=== PATIENT | female | born 1940 | race Caucasian/White ===

== ENCOUNTER 2016-05-02 22:47 | Inpatient (IN) | payer OTHER ==
[2016-05-02 23:00] VITALS: BMI 28.3
--- NOTE | 2016-05-02 23:24 | PDOC ---
[id number] 4d Language Barrier - History of Present Illness Initial Comments: 05/02/16 23:34 The patient is a 76 year old female, with a significant past medical history of hypertension, seizure disorder, CVA (left side), mitral valve replacement(on coumadin), and septic endocarditis, who presents to the emergency department complaining of nausea and vomiting for 2 days. The patient reports 2 episodes of hemoptysis earlier today. She reports 2 episodes of emesis today and 2 yesterday. She reports constant nausea. As per son, the patient has been experiencing constant nausea since yesterday. The patient reports associated chills, but denies any fever, cough, headache, or dizziness. She reports generalized abdominal pain but denies diarrhea, constipation, or changes in urination patterns. The patient denies any recent travel or sick contacts. Allergies: None reported. Past Surgical History: Heart valve replacement (15 years ago) Social History: Non-smoker. Denies alcohol or drug use. PCP: Not on staff <Kimmie Lambert - Last Filed: 05/03/16 03:35> <Ruby Lim - Last Filed: 05/04/16 09:44> - General History Source: Patient <Ugo Sinhg - Last Filed: 05/07/16 19:38> - General Chief Complaint: Vomiting Blood Stated Complaint: VOMITTING BLOOD Time Seen by Provider: 05/02/16 23:24 Past History <Kimmie Lambert - Last Filed: 05/03/16 03:35> <Ruby Lim - Last Filed: 05/04/16 09:44> - Past Medical History Cardiac Disorders: Yes (Mechanical valve) CVA: Yes (no residual) Diabetes: Yes HTN: Yes Seizures: Yes - Surgical History Cardiac Surgery: Yes (Mechanical valve) - Psycho/Social/Smoking Cessation Hx Suicidal Ideation: No Smoking History: Never smoked Have you smoked in the past 12 months: No Hx Alcohol Use: No Drug/Substance Use Hx: No Substance Use Type: None Hx Substance Use Treatment: No <Ugo Singh - Last Filed: 05/07/16 19:38> - Past Medical History Allergies/Adverse Reactions: Allergies Allergy/AdvReac Type Severity Reaction Status Date / Time No Known Allergies Allergy Verified 05/02/16 22:53 Home Medications: Ambulatory Orders Aspirin [ASA -] 81 mg PO DAILY 11/26/15 Phenytoin Sodium Extended 100 mg PO TID 11/26/15 Warfarin Na [Coumadin -] 4 mg PO DAILY@1800 05/02/16 Warfarin Na [Coumadin] 6 mg PO ONCE 05/02/16 Carvedilol [Coreg -] 12.5 mg PO BID #120 tablet 05/06/16 Cefuroxime Axetil [Ceftin -] 500 mg PO BID #4 tablet 05/06/16 Docusate Sodium [Colace -] 100 mg PO TID capsule 05/06/16 Furosemide [Lasix -] 40 mg PO DAILY #30 tablet 05/06/16 Lisinopril [Prinivil] 5 mg PO DAILY #30 tablet 05/06/16 Polyethylene Glycol 3350 [Miralax 119 gm Btl -] 17 gm PO DAILY bottle 05/06/16 Sennosides [Senna -] 2 tab PO HS PRN #60 tablet 05/06/16 Review of Systems - Review of Systems Able to Perform ROS?: Yes Comments:: 05/02/16 23:34 CONSTITUTIONAL: Present: +chills Absent: fever, diaphoresis, generalized weakness, malaise, loss of appetite HEENT: Absent: rhinorrhea, nasal congestion, throat pain, throat swelling, difficulty swallowing, mouth swelling, ear pain, eye pain, visual Changes CARDIOVASCULAR: Absent: chest pain, syncope, palpitations, irregular heart rate, lightheadedness , peripheral edema RESPIRATORY: Absent: cough, shortness of breath, dyspnea with exertion, orthopnea, wheezing, stridor, hemoptysis GASTROINTESTINAL: Present: +Generalized abdominal pain, + nausea, +vomiting Absent: abdominal distension, diarrhea, constipation, melena, hematochezia GENITOURINARY: Absent: dysuria, frequency, urgency, hesitancy, hematuria, flank pain, genital pain MUSCULOSKELETAL: Absent: myalgia, arthralgia, joint swelling SKIN: Absent: rash, itching, pallor HEMATOLOGIC/IMMUNOLOGIC: Absent: easy bleeding, easy bruising, lymphadenopathy, frequent infections ENDOCRINE: Absent: unexplained weight gain, unexplained weight loss, heat intolerance, cold intolerance NEUROLOGIC: Absent: headache, focal weakness or paresthesias, dizziness, unsteady gait, seizure, mental status changes, bladder or bowel incontinence PSYCHIATRIC: Absent: anxiety, depression, suicidal or homicidal ideation, hallucinations. <Kimmie Lambert - Last Filed: 05/03/16 03:35> *Physical Exam - Vital Signs Last Vital Signs Temp Pulse Resp BP Pulse Ox 97.6 F 89 24 140/90 99 05/02/16 22:58 05/02/16 22:58 05/02/16 22:58 05/02/16 22:58 05/02/16 22:58 - Physical Exam Comments: 05/02/16 23:35 GENERAL: Well developed, well nourished. Awake and alert. No acute distress. HEENT: Normocephalic, atraumatic. PERRLA, EOMI. No conjunctival pallor. Sclera are non- icteric. Moist mucous membranes. Oropharynx is clear. NECK: Supple. Full ROM. No JVD. Carotid pulses 2+ and symmetric, without bruits. No thyromegaly. No lymphadenopathy. CARDIOVASCULAR: Regular rate and rhythm. No murmurs, rubs, or gallops. Distal pulses are 2+ and symmetric. PULMONARY: No evidence of respiratory distress. Lungs clear to auscultation bilaterally. No wheezing, rales or rhonchi. ABDOMINAL: +Mild tenderness to palpation in all 4 quadrants. Non-distended. No rebound or guarding. No organomegaly. Normoactive bowel sounds. MUSCULOSKELETAL Normal range of motion at all joints. No bony deformities or tenderness. No CVA tenderness. EXTREMITIES: No cyanosis. No clubbing. No edema. No calf tenderness. SKIN: Warm and dry. Normal capillary refill. No rashes. No jaundice. NEUROLOGICAL: Alert, awake, appropriate. Cranial nerves 2-12 intact. No deficits to light touch and temperature in face, upper extremities and lower extremities. No motor deficits in the in face, upper extremities and lower extremities. Normoreflexic in the upper and lower extremities. Normal speech. Toes are down- going bilaterally. Gait is normal without ataxia. PSYCHIATRIC: Cooperative. Good eye contact. Appropriate mood and affect. <Kimmie Lambert - Last Filed: 05/03/16 03:35> - Vital Signs Last Vital Signs Temp Pulse Resp BP Pulse Ox 98.5 F 95 H 16 154/93 97 05/03/16 06:44 05/03/16 06:44 05/03/16 06:44 05/03/16 06:44 05/03/16 06:44 <Ruby Lim - Last Filed: 05/04/16 09:44> - Vital Signs Last Vital Signs Temp Pulse Resp BP Pulse Ox 97.6 F 89 24 140/90 99 05/02/16 22:58 05/02/16 22:58 05/02/16 22:58 05/02/16 22:58 05/02/16 22:58 <Ugo Singh - Last Filed: 05/07/16 19:38> Heart Score/ECG Review - ECG Impressions Comment:: 05/03/16 02:59 Vent. Rate: 90 bpm IMPRESSION: Sinus rhythm with 1st degree AV block with premature atrial complexes. Incomplete left bundle branch block. Prolonged QT. <Kimmie Lambert - Last Filed: 05/03/16 03:35> - History History: Moderately suspicious - Electrocardiogram EKG: Normal - Age Age: >/= 65 - Risk Factors Risk Factors Heart Score: Yes Hx Hypertension, Yes Hx Obesity Based on the list above the patient has:: 1-2 risk factors - Troponin Troponin: </= normal limit - Score Heart Score - Total: 4 <Ruby Lim - Last Filed: 05/04/16 09:44> ED Treatment Course - LABORATORY CBC & Chemistry Diagram: 05/03/16 02:58 05/03/16 02:58 <Kimmie Lambert - Last Filed: 05/03/16 03:35> - LABORATORY CBC & Chemistry Diagram: 05/04/16 05:35 05/04/16 05:35 - ADDITIONAL ORDERS Additional order review: Laboratory Results 05/03/16 05/03/16 05/03/16 03:54 02:58 02:58 INR 2.22 H D Sodium 134 L Potassium 3.4 L Chloride 94 L Carbon Dioxide 26 Anion Gap 14 BUN 15 D Creatinine 0.8 D Creat Clearance w eGFR > 60 Random Glucose 131 H D Calcium 8.6 Magnesium 1.7 L Total Bilirubin 0.5 D AST 44 H ALT 25 D Alkaline Phosphatase 153 H D Creatine Kinase 259 H D CK-MB (CK-2) 6.915 H Troponin I 0.05 B-Natriuretic Peptide 458.43 H Total Protein 7.4 Albumin 3.9 D Lipase 151 Urine Color Ltyellow Urine Appearance Clear Urine pH 7.0 Ur Specific [place] 1.010 Urine Protein Negative Urine Glucose (UA) Negative Urine Ketones 1+ H Urine Blood 2+ H Urine Nitrite Positive Urine Bilirubin Negative Urine Urobilinogen Negative Ur Leukocyte Esterase Negative Urine RBC 19 Urine WBC 2 Ur Epithelial Cells Rare Urine Bacteria Moderate Urine Mucus Rare 05/03/16 02:58 RBC 4.41 MCV 90.8 MCHC 34.4 RDW 13.4 D MPV 9.0 Neutrophils % 81.8 D Lymphocytes % 12.4 D Monocytes % 4.1 Eosinophils % 1.3 Basophils % 0.4 - RADIOLOGY Radiology Studies Ordered: Category Date Time Status ABDOMEN & PELVIS CT WITH CONTR [CT] Stat CT Scan 05/03/16 09:[address] WITH CONTRAST [CT] Stat CT Scan 05/03/16 09:51 Completed - Medications Given in the ED: ED Medications Discontinued Medications Generic Name Dose Route Start Last Admin Trade Name Freq PRN Reason Stop Dose Admin Ceftriaxone Sodium 1,000 mg 05/03/16 07:06 05/03/16 10:50 Rocephin - IVPB 05/03/16 07:07 1,000 mg ONCE ONE Administration Sodium Chloride 1,000 mls @ 1,000 mls/hr 05/02/16 23:25 05/03/16 02:29 Normal Saline - IV 05/03/16 00:24 1,000 mls/hr ASDIR STA Administration Famotidine/Sodium Chloride 20 50 mls @ 100 mls/hr 05/02/16 23:25 05/03/16 02:29 mg/ Miscellaneous IVPB 05/02/16 23:54 100 mls/hr ONCE ONE Administration Ondansetron HCl 4 mg 05/02/16 23:25 05/03/16 02:29 Zofran Injection IVPUSH 05/02/16 23:26 4 mg ONCE STA Administration <Rbuy Lim - Last Filed: 05/04/16 09:44> - LABORATORY CBC & Chemistry Diagram: 05/06/16 05:35 05/06/16 05:35 <Ugo Singh - Last Filed: 05/07/16 19:38> Medical Decision Making - Medical Decision Making 05/07/16 19:38 Dr. Singh: The scribe's documentation has been prepared under my direction and personally reviewed by me in its entirery. I confirm that the note above accurately reflects all work, treatment, procedures, and medical decision making performed by me. <Ugo Singh - Last Filed: 05/07/16 19:38> *DC/Admit/Observation/Transfer - Attestations Scribe Attestion: 05/02/16 23:36 Documentation prepared by Kimmie Lambert, acting as biomedical electronics technician for Ugo Singh DO. <Kimmie Labmert - Last Filed: 05/03/16 03:35> <Ruby Lim - Last Filed: 05/04/16 09:44> <Ugo Singh - Last Filed: 05/07/16 19:38> Diagnosis at time of Disposition: Epigastric pain, Elevation of cardiac enzymes Vomiting Qualifiers: Vomiting type: unspecified Vomiting Intractability: non-intractable Nausea presence: with nausea Qualified Code(s): R11.2 - Nausea with vomiting, unspecified - Discharge Dispostion Disposition: HOME Condition at time of disposition: Improved - Prescriptions
[2016-05-02] MEDS ORDERED: SODIUM CHLORIDE 1,000 ML IV STA (23:25)
[2016-05-02] MEDS ORDERED: FAMOTIDINE 20 MG/50 ML IVPB 20 MG in PREMIX 50 IVPB ONE (23:25)
[2016-05-02] MEDS ORDERED: ONDANSETRON 4 MG/2 ML VIAL IVPUSH STA (23:25)
[2016-05-03] MEDS ORDERED: ONDANSETRON 4 MG/2 ML VIAL ONE (02:31)
[2016-05-03] MEDS ORDERED: FAMOTIDINE 20 MG/50 ML IVPB 50 ML IVPB ONE (02:31)
[2016-05-03 03:16] LABS: BASOPHIL 0.4 % (0-2.0); EOSINOPHIL 1.3 % (0-4.5); MCH 31.2 pg (25.7-33.7); MCHC 34.4 g/dl (32.0-36.0); MEAN CELL VOLUME 90.8 fl (80-96); NEUTROPHILS 81.8 % (42.8-82.8); PLATELET COUNT 120 K/MM3 (134-434); RDW 13.4 % (11.6-15.6); WHITE BLOOD COUNT 6.7 K/mm3 (4.0-10.0)
[2016-05-03 03:31] LABS: INR 2.22 (0.82-1.09); PROTHROMBIN TIME (PATIENT) 24.8 SEC (9.98-11.88)
[2016-05-03 03:39] LABS: ALBUMIN 3.9 g/dl (3.4-5.0); ANION GAP 14 (8-16); BILIRUBIN,TOTAL 0.5 mg/dL (0.2-1.0); CALCIUM 8.6 mg/dL (8.5-10.1); CO2 26 mmol/L (21-32); CREATININE 0.8 mg/dL (0.55-1.02); GLUCOSE,RANDOM 131 mg/dL (74-106); MAGNESIUM 1.7 mg/dL (1.8-2.4); SGPT/ALT 25 U/L (12-78); TOT PROT 7.4 g/dl (6.4-8.2)
[2016-05-03 03:43] LABS: ALK PHOS 153 U/L (45-117); TROPONIN I 0.05 ng/ml (0.00-0.05)
[2016-05-03 03:49] LABS: SGOT/AST 44 U/L (15-37)
[2016-05-03 04:55] LABS: URINE APPEARANCE CLEAR; URINE BILIRUBIN NEGATIVE (NEGATIVE); URINE COLOR LTYELLOW; URINE GLUCOSE (UA) NEGATIVE (NEGATIVE); URINE KETONE 1+ (NEGATIVE); URINE LEUK ESTERASE NEGATIVE (NEGATIVE); URINE NITRITE POSITIVE (NEGATIVE); URINE PROTEIN NEGATIVE (NEGATIVE); URINE UROBILINOGEN NEGATIVE E.U./dl (0.2-1.0)
[2016-05-03 05:00] LABS: URINE BLOOD 2+ (NEGATIVE)
[2016-05-03 05:02] LABS: URINE BACTERIA MODERATE /hpf (NONE SEEN); URINE MUCUS RARE; URINE RBC 19 /hpf (0-3); URINE WBC 2 /hpf (3-5)
--- NOTE | 2016-05-03 09:34 | PDOC ---
*Physical Exam - Vital Signs Last Vital Signs Temp Pulse Resp BP Pulse Ox 98.5 F 95 H 16 154/93 97 05/03/16 06:44 05/03/16 06:44 05/03/16 06:44 05/03/16 06:44 05/03/16 06:44 ED Treatment Course - LABORATORY CBC & Chemistry Diagram: 05/03/16 02:58 05/03/16 02:58 - ADDITIONAL ORDERS Additional order review: Laboratory Results 05/03/16 05/03/16 05/03/16 03:54 02:58 02:58 INR 2.22 H D Sodium 134 L Potassium 3.4 L Chloride 94 L Carbon Dioxide 26 Anion Gap 14 BUN 15 D Creatinine 0.8 D Creat Clearance w eGFR > 60 Random Glucose 131 H D Calcium 8.6 Magnesium 1.7 L Total Bilirubin 0.5 D AST 44 H ALT 25 D Alkaline Phosphatase 153 H D Creatine Kinase 259 H D CK-MB (CK-2) 6.915 H Troponin I 0.05 B-Natriuretic Peptide 458.43 H Total Protein 7.4 Albumin 3.9 D Lipase 151 Urine Color Ltyellow Urine Appearance Clear Urine pH 7.0 Ur Specific [place] 1.010 Urine Protein Negative Urine Glucose (UA) Negative Urine Ketones 1+ H Urine Blood 2+ H Urine Nitrite Positive Urine Bilirubin Negative Urine Urobilinogen Negative Ur Leukocyte Esterase Negative Urine RBC 19 Urine WBC 2 Ur Epithelial Cells Rare Urine Bacteria Moderate Urine Mucus Rare 05/03/16 02:58 RBC 4.41 MCV 90.8 MCHC 34.4 RDW 13.4 D MPV 9.0 Neutrophils % 81.8 D Lymphocytes % 12.4 D Monocytes % 4.1 Eosinophils % 1.3 Basophils % 0.4 - Medications Given in the ED: ED Medications Discontinued Medications Generic Name Dose Route Start Last Admin Trade Name Freq PRN Reason Stop Dose Admin Sodium Chloride 1,000 mls @ 1,000 mls/hr 05/02/16 23:25 05/03/16 02:29 Normal Saline - IV 05/03/16 00:24 1,000 mls/hr ASDIR STA Administration Famotidine/Sodium Chloride 20 50 mls @ 100 mls/hr 05/02/16 23:25 05/03/16 02:29 mg/ Miscellaneous IVPB 05/02/16 23:54 100 mls/hr ONCE ONE Administration Ondansetron HCl 4 mg 05/02/16 23:25 05/03/16 02:29 Zofran Injection IVPUSH 05/02/16 23:26 4 mg ONCE STA Administration Medical Decision Making - Medical Decision Making Patient endorsed to me by Dr. Singh at 7am shift change. Labs had resulted with elevated CK and CK-MB. Troponin was negative at 0.05. On reassessment there is additional history. Granddaughter is with her, stating she has had recent fall onto her back a few days ago, has bruising to the back (noted to have ecchymosis to the L flank). Now presents with epigastric pain, persistent vomiting, which developed into hematemesis. She has not had any vomiting episodes in the ED. She is on coumadin. She has history of mitral valve replacement, CVA, HTN. I have added CT scans of chest and abdomen/pelvis to r/o any injury due to fall. Sono from gallbladder earlier this morning negative. I will add second round of CE. *DC/Admit/Observation/Transfer Diagnosis at time of Disposition: Epigastric pain, Elevation of cardiac enzymes Vomiting Qualifiers: Vomiting type: unspecified Vomiting Intractability: non-intractable Nausea presence: with nausea Qualified Code(s): R11.2 - Nausea with vomiting, unspecified - Discharge Dispostion Condition at time of disposition: Stable Admit: Yes
--- NOTE | 2016-05-03 09:58 | EKG ---
Test Reason : Blood Pressure : / mmHG Vent. Rate : 090 BPM Atrial Rate : 090 BPM P-R Int : 228 ms QRS Dur : 116 ms QT Int : 414 ms P-R-T Axes : 049 057 075 degrees QTc Int : 506 ms SINUS RHYTHM WITH 1ST DEGREE A-V BLOCK WITH PREMATURE ATRIAL COMPLEXES INCOMPLETE LEFT BUNDLE BRANCH BLOCK PROLONGED QT ABNORMAL ECG WHEN COMPARED WITH ECG OF 05-JAN-2016 10:44, PREMATURE ATRIAL COMPLEXES ARE NOW PRESENT QRS DURATION HAS INCREASED T WAVE INVERSION NO LONGER EVIDENT IN INFERIOR LEADS Confirmed by YAHIR GARG MD ([id number]) on 05/03/2016 9:58:24 AM Referred By: Confirmed By:YAHIR GARG MD
[2016-05-03] MEDS ORDERED: PANTOPRAZOLE SODIUM 40 MG in SODIUM CHLORIDE 100 ML IVPB ONE (14:28)
[2016-05-03 15:28] LABS: TROPONIN I 0.12 ng/ml (0.00-0.05)
--- NOTE | 2016-05-03 15:38 | HP ---
CHIEF COMPLAINT: epigastric pain, nausea, vomiting Patient seen and examine at bedside. Chart, data, and imaging reviewed HISTORY OF PRESENT ILLNESS: 76yo female with Hx of seizures, MV replacement x2 on coumadin currently, HTN, reported fall down stairs this past wed. She denies an LOC or head trauma. The same day after the fall she developed non specified epigastric pain along with nausea 6 episodes of brownish vomitus. Denied vomiting tamie blood. Epigastric pain was mainly associated with vomiting and is not radiating to other parts of body. It is now resolved. Recent Travel: no recent travel PAST MEDICAL HISTORY: Seizure d/o, MV replacement x2, and HTN MV replacment PAST SURGICAL HISTORY: Social History: Smoking: no Alcohol:no Drugs: no Family History: none Allergies No Known Allergies Allergy (Verified 05/02/16 22:53) HOME MEDICATIONS: Medication Instructions Recorded Aspirin [ASA -] 81 mg PO DAILY 11/26/15 Phenytoin Sodium Extended 100 mg PO TID 11/26/15 Carvedilol [Coreg -] 6.25 mg PO BID tablet 01/10/16 Furosemide [Lasix -] 80 mg PO DAILY 05/02/16 Warfarin Na [Coumadin] 4 mg PO DAILY@1800 05/02/16 Warfarin Na [Coumadin] 6 mg PO ONCE 05/02/16 REVIEW OF SYSTEMS CONSTITUTIONAL: Absent: fever, chills, diaphoresis, generalized weakness, weight change HEENT: Absent: rhinorrhea, nasal congestion, throat pain, throat swelling, difficulty swallowing, mouth swelling, ear pain, eye pain, visual changes CARDIOVASCULAR: Absent: chest pain, syncope, palpitations, irregular heart rate, lightheadedness , peripheral edema RESPIRATORY: Absent: cough, shortness of breath, dyspnea with exertion, orthopnea, wheezing, stridor, hemoptysis GASTROINTESTINAL: Absent: abdominal distension, diarrhea, melena, hematochezia GENITOURINARY: Absent: dysuria, frequency, urgency, hesitancy, hematuria, flank pain, genital pain MUSCULOSKELETAL: Absent: arthralgia, joint swelling, back pain, neck pain SKIN: Absent: rash, itching, pallor HEMATOLOGIC/IMMUNOLOGIC: Absent: , lymphadenopathy, frequent infections ENDOCRINE: Absent: unexplained weight gain, unexplained weight loss, heat intolerance, cold intolerance NEUROLOGIC: Absent: headache, focal weakness or paresthesias, dizziness, unsteady gait, seizure, mental status changes, bladder or bowel incontinence PSYCHIATRIC: Absent: anxiety, depression, suicidal or homicidal ideation, hallucinations. +consitpation, + myalgia on back, + bruising on back PHYSICAL EXAMINATION GENERAL: Awake, alert, drowsy HEAD: Normal with no signs of trauma, moist mucous membranes EYES: Pupils equal, round and reactive to light, sclera anicteric, conjunctiva clear EARS, NOSE, THROAT: Ears normal, nares patent, oropharynx clear without exudates. Moist mucous membranes. NECK: Normal range of motion, supple without lymphadenopathy, JVD, or masses. LUNGS: Breath sounds equal, clear to auscultation bilaterally. No wheezes, and no crackles. No accessory muscle use. HEART: Regular rate and rhythm, normal S1 and S2 + systolic mumur ABDOMEN: Soft, nontender, not distended, normoactive bowel sounds, no guarding, no rebound, no masses MUSCULOSKELETAL: Normal range of motion at all joints. left lumbar region bruising UPPER EXTREMITIES: 2+ pulses, warm, well-perfused. No cyanosis. No clubbing. No peripheral edema. LOWER EXTREMITIES: 2+ pulses, warm, well-perfused. No calf tenderness. No peripheral edema. NEUROLOGICAL: Normal speech. PSYCHIATRIC: Cooperative. Good eye contact. Appropriate mood and affect. SKIN: Warm, dry, normal turgor Laboratory Results - last 24 hr 05/03/16 15:00 Creatine Kinase 276 H Troponin I 0.12 H Abnormal Lab Results 05/03/16 05/03/16 05/03/16 02:58 02:58 02:58 Plt Count 120 L INR 2.22 H D Sodium 134 L Potassium 3.4 L Chloride 94 L Random Glucose 131 H D Magnesium 1.7 L AST 44 H Alkaline Phosphatase 153 H D Creatine Kinase 259 H D CK-MB (CK-2) 6.915 H Troponin I B-Natriuretic Peptide 458.43 H Urine Ketones Urine Blood 05/03/16 05/03/16 03:54 15:00 Plt Count INR Sodium Potassium Chloride Random Glucose Magnesium AST Alkaline Phosphatase Creatine Kinase 276 H CK-MB (CK-2) Troponin I 0.12 H B-Natriuretic Peptide Urine Ketones 1+ H Urine Blood 2+ H ASSESSMENT/PLAN: #Epigastric pain - r/o TN - EKG wnl, no ST, T changes noted, first troponin was negative, -admit to observation -serial troponins -repeat EKG -monitor H,H for possible drop- would suspect hematemesis #Nausea and vomiting -keep NPO fo now -IV fluid hydration -zofran 4mg IVPB PRN if nausea or vomiting #bioprosthetic mitral valve -continue ASA 81mg daily -continue coumadin 4mg daily -check INR at daily -consider to hold warfarin in future given history of fall #HTN -resume coreg 6.25mg bid -2g sodium diet once nausea, vomiting resolves #seizure dz - controlled -continue dilantin 100mg tid #DVT ppx -low risk -intermittent compression stocking -on coumadin Visit type - Emergency Visit Emergency Visit: Yes ED Registration Date: 05/03/16 Care time: The patient presented to the Emergency Department on the above date and was hospitalized for further evaluation of their emergent condition. - New Patient This patient is new to me today: Yes Date on this admission: 05/03/16 - Critical Care Critical Care patient: No
[2016-05-03] MEDS ORDERED: SODIUM CHLORIDE 1,000 ML IV SCH (16:45)
[2016-05-03] MEDS: WARFARIN NA 2 MG TABLET (UD) PO SCH (17:57)
[2016-05-03] MEDS: ONDANSETRON 4 MG/2 ML VIAL IVPB PRN (21:40)
[2016-05-03] MEDS: PHENYTOIN 50 MG TAB.CHEW PO SCH (22:50)
[2016-05-03] MEDS: CARVEDILOL 6.25 MG TABLET (FP) PO SCH (22:50)
[2016-05-04] MEDS: PHENYTOIN 50 MG TAB.CHEW PO SCH ×3 (06:12→22:27)
[2016-05-04] MEDS: ONDANSETRON 4 MG/2 ML VIAL IVPB PRN (06:45)
[2016-05-04 07:02] LABS: BASOPHIL 0.7 % (0-2.0); EOSINOPHIL 0.3 % (0-4.5); MCH 31.1 pg (25.7-33.7); MCHC 34.7 g/dl (32.0-36.0); MEAN CELL VOLUME 89.5 fl (80-96); MEAN PLT VOLUME 8.6 fl (7.5-11.1); NEUTROPHILS 79.1 % (42.8-82.8); PLATELET COUNT 132 K/MM3 (134-434); RDW 13.3 % (11.6-15.6); WHITE BLOOD COUNT 8.8 K/mm3 (4.0-10.0)
[2016-05-04 07:35] LABS: INR 3.39 (0.82-1.09); PROTHROMBIN TIME (PATIENT) 38.2 SEC (9.98-11.88)
[2016-05-04 07:58] LABS: CREATININE 0.9 mg/dL (0.55-1.02); TROPONIN I 0.13 ng/ml (0.00-0.05)
[2016-05-04] MEDS: CARVEDILOL 6.25 MG TABLET (FP) PO SCH ×2 (09:21→22:27)
[2016-05-04] MEDS: ASPIRIN COATED 81 MG TABLET.EC PO SCH (09:21)
[2016-05-04] MEDS: FUROSEMIDE 40 MG TABLET (FP) PO SCH (09:21)
[2016-05-04] MEDS ORDERED: CEFTRIAXONE 1 GM in DEXTROSE 5%-WATER - 50 ML IVPB SCH (10:45)
[2016-05-04] MEDS: cefTRIAXone 1 GM/50 ML BAG (PRE-DOCKED) IVPB SCH (12:46)
[2016-05-04] MEDS ORDERED: POTASSIUM CHLORIDE 40 MEQ/30 ML UNIT DOSE CUP PO ONE (14:21)
--- NOTE | 2016-05-04 15:05 | PN ---
Progress Note (short form) - Note Progress Note: Subjective: The patient was seen and examined at the bedside with her son present. She reports having vomiting since Friday, non-bilious, non-bloody. She denies any nausea or vomiting now. Denies diarrhea Current Medications Generic Name Dose Route Start Last Admin Trade Name Freq PRN Reason Stop Dose Admin Aspirin 81 mg 05/04/16 10:00 05/04/16 09:21 Ecotrin - PO 81 mg DAILY LIAM Administration Carvedilol 6.25 mg 05/03/16 22:00 05/04/16 09:21 Coreg - PO 6.25 mg BID LIAM Administration Ceftriaxone Sodium 1 gm 05/04/16 10:45 05/04/16 12:46 Rocephin 1gm Ivpb (Pre-Docked) IVPB 1 gm DAILY LIAM Administration Furosemide 40 mg 05/04/16 10:00 05/04/16 09:21 Lasix - PO 40 mg DAILY LIAM Administration Ondansetron HCl 4 mg 05/03/16 16:15 05/04/16 06:45 Zofran Injection IVPB 4 mg Q4H PRN Administration NAUSEA AND/OR VOMITING Phenytoin Sodium 100 mg 05/03/16 22:00 05/04/16 14:22 Dilantin Chewable Tablet - PO 100 mg TID LIAM Administration Potassium Chloride 20 meq 05/04/16 14:21 Kcl Oral Solution - PO 05/04/16 14:22 ONCE ONE Warfarin Sodium 4 mg 05/03/16 18:00 05/03/16 17:57 Coumadin - PO Not Given DAILY@1800 LIAM Objective: Vital Signs Period Temp Pulse Resp BP Sys/Gale Pulse Ox Last 24 Hr 98.2 F-98.6 F 87-101 16-20 131-164/79-91 96-98 Physical Exam: General: NAD, A&Ox3 Lungs: CTA bilaterally Heart: RRR, S1S2 Abd: Soft, non-tender, non-distended. Normoactive bowel sounds Ext: Warm, well-perfused. 2+ DP/PT bilaterally Neuro: CN 2-12 intact CBCD WBC 8.8 K/mm3 (4.0-10.0) D 05/04/16 05:35 RBC 4.32 M/mm3 (3.60-5.2) 05/04/16 05:35 Hgb 13.4 GM/dL (10.7-15.3) 05/04/16 05:35 Hct 38.7 % (32.4-45.2) 05/04/16 05:35 MCV 89.5 fl (80-96) 05/04/16 05:35 MCHC 34.7 g/dl (32.0-36.0) 05/04/16 05:35 RDW 13.3 % (11.6-15.6) 05/04/16 05:35 Plt Count 132 K/MM3 (134-434) L 05/04/16 05:35 MPV 8.6 fl (7.5-11.1) 05/04/16 05:35 CMP Sodium 137 mmol/L (136-145) 05/04/16 05:35 Potassium 3.3 mmol/L (3.5-5.1) L 05/04/16 05:35 Chloride 99 mmol/L (98-107) 05/04/16 05:35 Carbon Dioxide 26 mmol/L (21-32) 05/04/16 05:35 Anion Gap 12 (8-16) 05/04/16 05:35 BUN 15 mg/dL (7-18) 05/04/16 05:35 Creatinine 0.9 mg/dL (0.55-1.02) 05/04/16 05:35 Creat Clearance w eGFR > 60 (>60) 05/03/16 02:58 Random Glucose 116 mg/dL (74-106) H 05/04/16 05:35 Calcium 9.0 mg/dL (8.5-10.1) 05/04/16 05:35 Total Bilirubin 0.5 mg/dL (0.2-1.0) D 05/03/16 02:58 AST 44 U/L (15-37) H 05/03/16 02:58 ALT 25 U/L (12-78) D 05/03/16 02:58 Alkaline Phosphatase 153 U/L (45-117) H D 05/03/16 02:58 Total Protein 7.4 g/dl (6.4-8.2) 05/03/16 02:58 Albumin 3.9 g/dl (3.4-5.0) D 05/03/16 02:58 CARDIAC ENZYMES Creatine Kinase 276 IU/L (26-192) H 05/03/16 15:00 Troponin I 0.13 ng/ml (0.00-0.05) H 05/04/16 05:35 Microbiology 05/03/16 03:54 Urine - Urine Clean Catch Urine Culture - Preliminary Non Lactose Fermenting Gnb Assessment: This is a 76 year old with PMHx of seizure disorder, mitral valve replacement x2, HTN, who presented to the ED with a reported fall on 05/01, nausea, vomiting and was found to have a urinary tract infection. Plan: 1) ID: UTI - Urine culture with preliminary non-lactose fermenting gnb - Continue Ceftriaxone 1g IVPB daily - F/u final c/s - Remains afebile - WBC wnl 2) Cardiology: Elevated troponins - Per cardiology no clinical evidence of demand ischemia injury - Continue Coreg - Will add lisinopril 2.5mg po daily MVR mechanical prothesis - Continue ASA - Continue Coumadin (goal INR 2.5-3.5) - F/u ECHO to evaluate MV prosthesis and LV function HTN - As above 3) GI: N/V - Per patient, no blood in vomitus - Per RN, no blood noted in vomitus - H/H stable - Vomiting resolved - Continue to monitor 4) Neuro: Seizure disorder - Continue Dilantin 5) F/E/N: - Clear liquid diet - Monitor electrolytes 6) Prophylaxis: - Therapeutic on Coumadin 7) Dispo: - Requires continued inpatient care CODE STATUS: FULL CODE Visit type - Emergency Visit Emergency Visit: Yes ED Registration Date: 05/04/16 Care time: The patient presented to the Emergency Department on the above date and was hospitalized for further evaluation of their emergent condition. - New Patient This patient is new to me today: Yes Date on this admission: 05/04/16 - Critical Care Critical Care patient: No - Discharge Referral Referred to [facility] No
[2016-05-04 15:22] LABS: MAGNESIUM 1.8 mg/dL (1.8-2.4)
--- NOTE | 2016-05-04 17:17 | PN ---
Progress Note (short form) - Note Progress Note: Chief Complaint: Events noted, notes reviewed, epigastric discomfort, nausea, vomiting and possible hematemesis History of Present Illness: Seen and examined on telemetry. Full consult dictated Medications: Current Medications Aspirin (Ecotrin -) 81 mg PO DAILY [facility] Last Admin: 05/04/16 09:21 Dose: 81 mg Carvedilol (Coreg -) 6.25 mg PO BID [facility] Last Admin: 05/04/16 09:21 Dose: 6.25 mg Ceftriaxone Sodium (Rocephin 1gm Ivpb (Pre-Docked)) 1 gm IVPB DAILY [facility] Last Admin: 05/04/16 12:46 Dose: 1 gm Furosemide (Lasix -) 40 mg PO DAILY [facility] Last Admin: 05/04/16 09:21 Dose: 40 mg Ondansetron HCl (Zofran Injection) 4 mg IVPB Q4H PRN PRN Reason: NAUSEA AND/OR VOMITING Last Admin: 05/04/16 06:45 Dose: 4 mg Phenytoin Sodium (Dilantin Chewable Tablet -) 100 mg PO TID [facility] Last Admin: 05/04/16 14:22 Dose: 100 mg Warfarin Sodium (Coumadin -) 4 mg PO DAILY@1800 [facility] Last Admin: 05/03/16 17:57 Dose: Not Given Review of Systems - Review of Systems Constitutional: denies: Chills, Fever Cardiovascular: As noted above Respiratory: denies: Cough or Sputum Production Gastrointestinal: reports: Nausea, Vomiting, Diarrhea and Abdominal Pain denies : Constipation Neurological: No Symptoms Reported Vital Signs: Last Vital Signs Temp Pulse Resp BP Pulse Ox 98.2 F 80 20 145/80 98 05/04/16 14:00 05/04/16 14:00 05/04/16 14:00 05/04/16 14:00 05/04/16 10:00 Neck: Supple Negative JVD No Bruit Respiratory: Diminished Breath Sounds at the Bases Cardiovascular: Mechanical Click S2 Regular Rate and rhythm Grade 1-2/6 SM Gastrointestinal: Soft Benign Normal Bowel Sounds Ext: Negative Edema Labs: Troponin, BNP 05/03/16 05/04/16 21:00 05:35 Troponin I 0.16 H 0.13 H CBC, BMP 05/04/16 05:35 05/04/16 05:35 INR, PTT INR 3.39 (0.82-1.09) H D 05/04/16 05:35 Assessment/Plan ASSESSMENT: 1. Underlying CAD angina pectoris with elevated Troponin I (of no clinical significance) no clinical evidence of demand ischemic injury 2. Nausea, vomiting, epigastric discomfort and possible hematemesis 3. Post re-op MVR mechanical prosthesis (initial MVR Bio-prosthesis complicated by endocarditis) 4. LV diastolic dysfunction with chronic class I-II NYHA classification LV failure, compensated 5. 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 HTN 7. History of seizure disorder 8. history of a recent fall PLAN: 1. Continue Coreg 2. Add ARBS unless it is absolutely contraindicated 3. Continue ASA and Coumadin (maintaining INR between 2.5-3.5) with caution and close monitoring of CBC 4. Continue diuretics 5. Echocardiography to evaluate LV function and MV prosthesis Yunior Lincoln M.D.
[2016-05-04] MEDS: WARFARIN NA 2 MG TABLET (UD) PO SCH ×2 (18:09→19:56)
--- NOTE | 2016-05-04 20:33 | CONS ---
DATE OF CONSULTATION: 05/04/2016 REQUESTED BY: HOSPITALIST CHIEF COMPLAINT: Nausea, vomiting, epigastric discomfort, elevated troponin I, cardiovascular evaluation. HISTORY OF PRESENT ILLNESS: A 76-year-old female of descent with known history of coronary artery disease, angina pectoris, diastolic left ventricular dysfunction with class I-II [place] Heart [employer] classification left ventricular failure. 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 The patient was noted upon evaluation in the emergency room to have elevated troponin I level. The patient currently reports vague epigastric discomfort but she denies any nausea or vomiting. The patient denies any chest discomfort. The patient denies any dyspnea, orthopnea, paroxysmal nocturnal dyspnea, or peripheral edema. The patient denies any palpitations, dizziness, lightheaded, or syncope. According to the family, the patient recently sustained a fall at home. 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 SOCIAL HISTORY: Denies smoking or alcohol intake. FAMILY HISTORY: No family history of coronary artery disease. ALLERGIES: None reported. MEDICAL THERAPY AT HOME: Included Ecotrin 81 mg once a day, Coumadin 4 mg once a day, Lasix 80 mg once a day, carvedilol 6.25 mg twice a day, phenytoin 100 mg three times a day. REVIEW OF SYSTEMS: Head and Neck: Denies headache, photophobia, blurring of vision. Respiratory: Denies cough or sputum production. Cardiovascular: As noted above. Gastrointestinal: As noted above. Genitourinary: No symptoms reported. Musculoskeletal: History of degenerative joint disease. PHYSICAL EXAMINATION: Vital Signs: Blood pressure is 145/80 mmHg, pulse rate 80 beats per minute. Head and Neck: Pupils equal reactive to light and accommodation. Extraocular muscles intact. Nonicteric sclerae. Negative JVD. No bruit appreciated. Chest: Diminished breath sounds at the bases. Cardiovascular: Mechanical click, S2. Grade 1 to 2/6 systolic ejection murmur. No gallops Abdomen: Soft, benign, normoactive bowel sounds. Extremities: Negative edema. Intact distal pulses. No calf tenderness. LABORATORY DATA: Electrocardiogram revealed sinus rhythm with poor R-wave progression and a prolonged QTC interval. CT scan of the chest was noted. Troponin I 0.16. Repeat 0.13. CBC revealed white cell count 8.8, hemoglobin 13.4, platelets 132. Basic metabolic profile reveals sodium 137, potassium 3.3, BUN 15, creatinine 0.9, glucose 116, INR 3.39. ASSESSMENT: 1. Underlying cleaned and dressed, angina pectoris with elevated troponin I of no clinical significance. No clinical evidence of demand ischemic injury. 2. Nausea, vomiting, epigastric discomfort, and possible hematemesis. 3. Post reoperation mitral valve replacement, mechanical prosthesis, initial mitral valve replacement bioprosthesis complicated by endocarditis. 4. Left ventricular diastolic dysfunction with chronic class I-II [place] Heart [employer] classification of left ventricular failure, compensated. 5. 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 6. Hypertensive cardiovascular disease. 7. History of seizure disorder. 8. History of a recent fall. PLAN: 1. Continuation of Coreg 2 Addition of angiotensin receptor blockers unless it is absolutely contraindicated. 3. Continuation of aspirin and Coumadin, maintaining INR between 2.5-3.5 with caution and close monitoring of CBC, considering the above noted clinical presentation. 4. Continuation of diuretic therapy with Lasix. 5. Echocardiography for evaluation of left ventricular size and function and the above-noted mitral valve prosthesis. Thank you for your kind referral. SHAHAB MCCORMACK M.D. [id number]
[2016-05-04] MEDS ORDERED: PT OWN MED DRAWER 7, Y5N ONE (22:26)
[2016-05-05] MEDS ORDERED: PT OWN MED DRAWER 7, Y5N ONE ×2 (05:53→16:07)
[2016-05-05] MEDS: PHENYTOIN 50 MG TAB.CHEW PO SCH ×3 (05:55→21:28)
[2016-05-05 07:26] LABS: BASOPHIL 0.8 % (0-2.0); MCH 31.2 pg (25.7-33.7); MCHC 35.6 g/dl (32.0-36.0); MEAN CELL VOLUME 87.8 fl (80-96); MEAN PLT VOLUME 8.2 fl (7.5-11.1); NEUTROPHILS 66.2 % (42.8-82.8); PLATELET COUNT 118 K/MM3 (134-434); WHITE BLOOD COUNT 6.6 K/mm3 (4.0-10.0)
[2016-05-05 07:33] LABS: PROTHROMBIN TIME (PATIENT) 48.7 SEC (9.98-11.88)
[2016-05-05 07:38] LABS: INR 4.3 (0.82-1.09)
--- NOTE | 2016-05-05 09:18 | PN ---
Progress Note (short form) - Note Progress Note: Chief Complaint: Events noted, notes reviewed, denies any further epigastric discomfort, nausea, vomiting, denies any chest pain or dyspnea History of Present Illness: Seen and examined on telemetry. Events noted, notes reviewed, denies any further epigastric discomfort, nausea, vomiting, denies any chest pain or dyspnea INR from this AM noted, supra-therapeutic Medications: Current Medications Aspirin (Ecotrin -) 81 mg PO DAILY [facility] Last Admin: 05/04/16 09:21 Dose: 81 mg Carvedilol (Coreg -) 6.25 mg PO BID [facility] Last Admin: 05/04/16 22:27 Dose: 6.25 mg Ceftriaxone Sodium (Rocephin 1gm Ivpb (Pre-Docked)) 1 gm IVPB DAILY [facility] Last Admin: 05/04/16 12:46 Dose: 1 gm Furosemide (Lasix -) 40 mg PO DAILY [facility] Last Admin: 05/04/16 09:21 Dose: 40 mg Lisinopril (Prinivil) 2.5 mg PO DAILY [facility] Ondansetron HCl (Zofran Injection) 4 mg IVPB Q4H PRN PRN Reason: NAUSEA AND/OR VOMITING Last Admin: 05/04/16 06:45 Dose: 4 mg Phenytoin Sodium (Dilantin Chewable Tablet -) 100 mg PO TID [facility] Last Admin: 05/05/16 05:55 Dose: 100 mg Warfarin Sodium (Coumadin -) 4 mg PO DAILY@1800 [facility] Last Admin: 05/04/16 19:56 Dose: 4 mg Review of Systems - Review of Systems Constitutional: denies: Chills, Fever Cardiovascular: As noted above Respiratory: denies: Cough or Sputum Production Gastrointestinal: denies: Nausea, Vomiting, Diarrhea, Constipation or Abdominal Pain Neurological: No Symptoms Reported Vital Signs: Last Vital Signs Temp Pulse Resp BP Pulse Ox 98.1 F 78 20 154/90 98 05/05/16 06:00 05/05/16 06:00 05/05/16 06:00 05/05/16 06:00 05/05/16 06:00 Neck: Supple Negative JVD No Bruit Respiratory: Diminished Breath Sounds at the Bases Cardiovascular: Mechanical Click S2 Regular Rate and rhythm Grade 1-2/6 SM Gastrointestinal: Soft Benign Normal Bowel Sounds Ext: Negative Edema Labs: CBC, BMP 05/05/16 05:35 05/04/16 05:35 INR, PTT INR 4.30 (0.82-1.09) H* 05/05/16 05:35 Assessment/Plan ASSESSMENT: 1. CAD angina pectoris with elevated Troponin I (of no clinical significance) no clinical evidence of demand ischemic injury 2. Nausea, vomiting, epigastric discomfort and possible hematemesis, resolved 3. Post re-op MVR mechanical prosthesis (initial MVR Bio-prosthesis complicated by endocarditis) 4. LV diastolic dysfunction with chronic class I-II NYHA classification LV failure, compensated 5. 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 HTN 7. History of seizure disorder 8. UTI 9. history of a recent fall PLAN: 1. Continue Coreg and titrate dosage 2. Continue Lisinopril and titrate dosage 3. Continue ASA and Coumadin (maintaining INR between 2.5-3.5) with caution and close monitoring of CBC, hold todays Coumadin dose 4. Continue diuretics 5. Antibiotics as per primary team 6. Echocardiography to evaluate LV function and MV prosthesis Yunior Lincoln M.D.
[2016-05-05] MEDS ORDERED: WARFARIN NA 2 MG TABLET (UD) PO SCH (09:21)
--- NOTE | 2016-05-05 09:39 | EKG ---
Test Reason : Blood Pressure : / mmHG Vent. Rate : 085 BPM Atrial Rate : 085 BPM P-R Int : 222 ms QRS Dur : 112 ms QT Int : 412 ms P-R-T Axes : 045 033 056 degrees QTc Int : 490 ms SINUS RHYTHM WITH 1ST DEGREE A-V BLOCK PROLONGED QT ABNORMAL ECG WHEN COMPARED WITH ECG OF 03-MAY-2016 02:55, PREMATURE ATRIAL COMPLEXES ARE NO LONGER PRESENT Confirmed by FOREST CASEY, YAHIR ([id number]) on 05/05/2016 9:39:06 AM Referred By: Jose Elias CAMERON Confirmed By:YAHIR GARG MD
[2016-05-05 09:47] LABS: CALCIUM 8.6 mg/dL (8.5-10.1); CREATININE 0.8 mg/dL (0.55-1.02)
[2016-05-05] MEDS ORDERED: LISINOPRIL 5 MG TABLET (FP) PO SCH (10:00)
[2016-05-05] MEDS: ASPIRIN COATED 81 MG TABLET.EC PO SCH (10:43)
[2016-05-05] MEDS: LISINOPRIL 5 MG TABLET (FP) PO SCH (10:43)
[2016-05-05] MEDS: CARVEDILOL 6.25 MG TABLET (FP) PO SCH ×2 (10:44→21:27)
[2016-05-05] MEDS: FUROSEMIDE 40 MG TABLET (FP) PO SCH (10:44)
[2016-05-05] MEDS: cefTRIAXone 1 GM/50 ML BAG (PRE-DOCKED) IVPB SCH (10:45)
--- NOTE | 2016-05-05 11:59 | PN ---
Progress Note (short form) - Note Progress Note: Subjective: The patient was seen and examined at the bedside she denies any nausea or vomiting. Diet advanced F/u ECHO tomorrow Mechanical mitral valve: INR supratherapeutic today, will hold Coumadin Current Medications Generic Name Dose Route Start Last Admin Trade Name Freq PRN Reason Stop Dose Admin Aspirin 81 mg 05/04/16 10:00 05/05/16 10:43 Ecotrin - PO 81 mg DAILY [facility] Administration Carvedilol 12.5 mg 05/05/16 09:21 05/05/16 10:44 Coreg - PO 12.5 mg BID [facility] Administration Ceftriaxone Sodium 1 gm 05/04/16 10:45 05/05/16 10:45 Rocephin 1gm Ivpb (Pre-Docked) IVPB 1 gm DAILY [facility] Administration Furosemide 40 mg 05/04/16 10:00 05/05/16 10:44 Lasix - PO 40 mg DAILY [facility] Administration Lisinopril 5 mg 05/05/16 10:00 05/05/16 10:43 Prinivil PO 5 mg DAILY [facility] Administration Ondansetron HCl 4 mg 05/03/16 16:15 05/04/16 06:45 Zofran Injection IVPB 4 mg Q4H PRN Administration NAUSEA AND/OR VOMITING Phenytoin Sodium 100 mg 05/03/16 22:00 05/05/16 05:55 Dilantin Chewable Tablet - PO 100 mg TID [facility] Administration Warfarin Sodium 4 mg 05/05/16 09:21 Coumadin - PO DAILY@1800 [facility] Objective: Vital Signs Period Temp Pulse Resp BP Sys/Gale Pulse Ox Last 24 Hr 98.1 F-99 F 78-86 20-20 131-154/80-93 98-98 Physical Exam: General: NAD, A&Ox3 Lungs: CTA bilaterally Heart: RRR, S1S2 Abd: Soft, non-tender, non-distended. Normoactive bowel sounds Ext: Warm, well-perfused. 2+ DP/PT bilaterally Neuro: CN 2-12 intact CBCD WBC 6.6 K/mm3 (4.0-10.0) 05/05/16 05:35 RBC 4.35 M/mm3 (3.60-5.2) 05/05/16 05:35 Hgb 13.6 GM/dL (10.7-15.3) 05/05/16 05:35 Hct 38.2 % (32.4-45.2) 05/05/16 05:35 MCV 87.8 fl (80-96) 05/05/16 05:35 MCHC 35.6 g/dl (32.0-36.0) 05/05/16 05:35 RDW 13.0 % (11.6-15.6) 05/05/16 05:35 Plt Count 118 K/MM3 (134-434) L 05/05/16 05:35 MPV 8.2 fl (7.5-11.1) 05/05/16 05:35 CMP Sodium 130 mmol/L (136-145) L 05/05/16 09:27 Potassium 3.4 mmol/L (3.5-5.1) L 05/05/16 09:27 Chloride 92 mmol/L (98-107) L 05/05/16 09:27 Carbon Dioxide 29 mmol/L (21-32) 05/05/16 09:27 Anion Gap 9 (8-16) 05/05/16 09:27 BUN 11 mg/dL (7-18) D 05/05/16 09:27 Creatinine 0.8 mg/dL (0.55-1.02) 05/05/16 09:27 Creat Clearance w eGFR > 60 (>60) 05/03/16 02:58 Random Glucose 108 mg/dL (74-106) H 05/05/16 09:27 Calcium 8.6 mg/dL (8.5-10.1) 05/05/16 09:27 Total Bilirubin 0.5 mg/dL (0.2-1.0) D 05/03/16 02:58 AST 44 U/L (15-37) H 05/03/16 02:58 ALT 25 U/L (12-78) D 05/03/16 02:58 Alkaline Phosphatase 153 U/L (45-117) H D 05/03/16 02:58 Total Protein 7.4 g/dl (6.4-8.2) 05/03/16 02:58 Albumin 3.9 g/dl (3.4-5.0) D 05/03/16 02:58 CARDIAC ENZYMES Creatine Kinase 227 IU/L (26-192) H 05/04/16 05:35 Troponin I 0.13 ng/ml (0.00-0.05) H 05/04/16 05:35 Microbiology 05/03/16 03:54 Urine - Urine Clean Catch Urine Culture - Final Escherichia Coli Assessment: This is a 76 year old with PMHx of seizure disorder, mitral valve replacement x2, HTN, who presented to the ED with a reported fall on 05/01, nausea, vomiting and was found to have a urinary tract infection. Plan: 1) ID: E.coli UTI - Continue Ceftriaxone 1g IVPB daily - Remains afebile - WBC wnl 2) Cardiology: Elevated troponins - Per cardiology no clinical evidence of demand ischemia injury - Continue Coreg - Will add lisinopril 2.5mg po daily MVR mechanical prothesis - Continue ASA - INR supratherapeutic, hold Coumadin and f/u INR in AM (goal 2.5-3.5) - F/u ECHO to evaluate MV prosthesis and LV function HTN - As above 3) GI: N/V - Resolved - H/H stable - Continue to monitor 4) Neuro: Seizure disorder - Continue Dilantin 5) F/E/N: - Advance diet to regular - Monitor electrolytes 6) Prophylaxis: - Supratherapeutic on Coumadin 7) Dispo: - Requires continued inpatient care CODE STATUS: FULL CODE Visit type - Emergency Visit Emergency Visit: Yes ED Registration Date: 05/04/16 Care time: The patient presented to the Emergency Department on the above date and was hospitalized for further evaluation of their emergent condition. - New Patient This patient is new to me today: No - Critical Care Critical Care patient: No
[2016-05-05] MEDS ORDERED: POTASSIUM CHLORIDE TABS 20 MEQ TABLET.ER (FP) PO ONE (18:47)
[2016-05-06] MEDS: PHENYTOIN 50 MG TAB.CHEW PO SCH ×2 (05:45→15:30)
[2016-05-06 07:28] LABS: BASOPHIL 0.6 % (0-2.0); EOSINOPHIL 0.8 % (0-4.5); MCH 31.2 pg (25.7-33.7); MCHC 35.4 g/dl (32.0-36.0); MEAN CELL VOLUME 88.2 fl (80-96); MEAN PLT VOLUME 8.4 fl (7.5-11.1); PLATELET COUNT 118 K/MM3 (134-434); RDW 13.5 % (11.6-15.6); WHITE BLOOD COUNT 6.9 K/mm3 (4.0-10.0)
[2016-05-06 07:51] LABS: INR 2.31 (0.82-1.09); PROTHROMBIN TIME (PATIENT) 25.8 SEC (9.98-11.88)
[2016-05-06 08:08] LABS: CALCIUM 8.3 mg/dL (8.5-10.1); CREATININE 0.8 mg/dL (0.55-1.02)
[2016-05-06 08:24] VITALS: TEMP 98.2
--- NOTE | 2016-05-06 10:00 | PN ---
Progress Note, Physician Chief Complaint: Events noted Appears comfortable Denies nausea, vomiting History of Present Illness: Patient was seen and examined. Awake and alert. Chart was reviewed Denies chest pain, SOB or palpitation - Current Medication List Current Medications: Active Medications Aspirin (Ecotrin -) 81 mg PO DAILY [facility] Last Admin: 05/05/16 10:43 Dose: 81 mg Carvedilol (Coreg -) 12.5 mg PO BID [facility] Last Admin: 05/05/16 21:27 Dose: 12.5 mg Ceftriaxone Sodium (Rocephin 1gm Ivpb (Pre-Docked)) 1 gm IVPB DAILY [facility] Last Admin: 05/05/16 10:45 Dose: 1 gm Furosemide (Lasix -) 40 mg PO DAILY [facility] Last Admin: 05/05/16 10:44 Dose: 40 mg Lisinopril (Prinivil) 5 mg PO DAILY [facility] Last Admin: 05/05/16 10:43 Dose: 5 mg Ondansetron HCl (Zofran Injection) 4 mg IVPB Q4H PRN PRN Reason: NAUSEA AND/OR VOMITING Last Admin: 05/04/16 06:45 Dose: 4 mg Phenytoin Sodium (Dilantin Chewable Tablet -) 100 mg PO TID [facility] Last Admin: 05/06/16 05:45 Dose: 100 mg Warfarin Sodium (Coumadin -) 4 mg PO DAILY@1800 [facility] - Objective Vital Signs: Vital Signs Temperature 98.2 F 05/06/16 08:23 Pulse Rate 78 05/06/16 08:23 Respiratory Rate 18 05/06/16 08:24 Blood Pressure 138/74 05/06/16 08:23 O2 Sat by Pulse Oximetry (%) 97 05/06/16 08:24 Neck: Yes: Supple Cardiovascular: Yes: Regular Rate and Rhythm, Murmur (Soft SM), S1, S2 Respiratory: Yes: CTA Bilaterally Gastrointestinal: Yes: Normal Bowel Sounds, Soft. No: Tenderness Edema: No Additional Findings/Remarks: - Review of Systems Constitutional: denies: Chills, Fever Cardiovascular: As noted above Respiratory: denies: Cough or Sputum Production Gastrointestinal: denies: Nausea, Vomiting, Diarrhea, Constipation or Abdominal Pain Neurological: No Symptoms Reported Labs: CBC, BMP 05/06/16 05:35 05/06/16 05:35 INR, PTT INR 2.31 (0.82-1.09) H D 05/06/16 05:35 Assessment/Plan 1. CAD angina pectoris with mildly elevated Troponin I - no clinical evidence of demand ischemia 2. Nausea, vomiting, epigastric discomfort and possible hematemesis, resolved 3. Post re-op MVR prosthesis (initial MVR Bio-prosthesis complicated by endocarditis) 4. LV diastolic dysfunction with chronic class I-II NYHA classification LV failure, compensated 5. 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 HTN 7. History of seizure disorder 8. UTI 9. history of a recent fall PLAN: 1. Continue Carvedilol and Lisinopril (previously was on Ramipril, but discontinued) - titrate dosage 2. Continue ASA and Coumadin (maintaining INR between 2.5-3.5) with caution and close monitoring of CBC. Coumadin is to be used short term as per Cardiac valve team at [facility] 3. Continue diuretics - Lasix PO 4. Empiric antibiotics 5. Transthoracic echocardiography to evaluate LV function and MV prosthesis ( also review study done in office) Further plans are to follow Edwin Rogers MD
[2016-05-06] MEDS: ASPIRIN COATED 81 MG TABLET.EC PO SCH (10:09)
[2016-05-06] MEDS: LISINOPRIL 5 MG TABLET (FP) PO SCH (10:09)
[2016-05-06] MEDS: CARVEDILOL 6.25 MG TABLET (FP) PO SCH (10:10)
[2016-05-06] MEDS: cefTRIAXone 1 GM/50 ML BAG (PRE-DOCKED) IVPB SCH (10:10)
[2016-05-06] MEDS: FUROSEMIDE 40 MG TABLET (FP) PO SCH (10:10)
[2016-05-06] MEDS ORDERED: SENNOSIDES 8.6MG TABLET (FP) PO PRN (13:55)
[2016-05-06] MEDS ORDERED: POLYETHYLENE GLYCOL 3350 119 GM BTL PO SCH (14:00)
[2016-05-06] MEDS ORDERED: DOCUSATE SODIUM 100 MG CAPSULE (FP) PO SCH (14:00)
[2016-05-06 14:16] VITALS: BP 98/46; PULSE 82
--- NOTE | 2016-05-06 16:12 | DS ---
Physical Examination Vital Signs: Vital Signs Temperature 98.2 F 05/06/16 08:23 Pulse Rate 82 05/06/16 14:00 Respiratory Rate 20 05/06/16 14:00 Blood Pressure 98/46 05/06/16 14:00 O2 Sat by Pulse Oximetry (%) 97 05/06/16 08:24 Findings/Remarks: Physical Exam: General: NAD, A&Ox3 Lungs: CTA bilaterally Heart: RRR, S1S2 Abd: Soft, non-tender, non-distended. Normoactive bowel sounds Ext: Warm, well-perfused. 2+ DP/PT bilaterally Neuro: CN 2-12 intact Labs: CBC, BMP 05/06/16 05:35 05/06/16 05:35 Discharge Summary Reason For Visit: EPIGASTRIC PAIN,VOMITING Current Active Problems Elevation of cardiac enzymes (Acute) Epigastric pain (Acute) Vomiting (Acute) Hospital Course: This is a 76 year old with PMHx of seizure disorder, mitral valve replacement x2 , HTN, who presented to the ED with a reported fall on 05/01, nausea, vomiting and was found to have a urinary tract infection. Plan: 1) ID: E.coli UTI - Continue Cefuroxime as outpatient - Remains afebile - WBC wnl 2) Cardiology: Elevated troponins - Per cardiology no clinical evidence of demand ischemia injury - Continue Coreg - Continue Lisinopril 5mg po daily MVR mechanical prothesis - Continue ASA - Restart Coumadin (goal 2.5-3.5) - ECHO with normal LV size and function. No regional wall motion abnormalities. Post TMVR with [place] [employer] prosthetic valve in mitral position. Small mobile linear echogenicity is seen in the vicinity of the prosthetic mitral valve. Doubt vegetation without clinical symptoms. HTN - As above 3) GI: N/V - Resolved - H/H stable - Continue to monitor 4) Neuro: Seizure disorder - Continue Dilantin Discussed with Dr. Rogers, mitral valve is bioprothetic, can be discharged home and follow-up in the office. Dr. Rogers reports echogenicity on ECHO was there during prior TTE. Patient observed ambulating Instructed the patient to please follow-up with pcp and cardiology within 1 week. Please return to the ED with new, persistent, or worsening symptoms. This discharge took 45 minutes to complete. Condition: Improved - Instructions Diet, Activity, Other Instructions: Please return to the ED with new, persistent, or worsening symptoms. Please follow-up with providers as indicated. Referrals: Edwin Rogers MD [Staff Physician] - (Please follow-up with cardiology within 2- 3 days for further management of your mitral valve and cardiac medications) Carlos Brown MD [Staff Physician] - (Please follow-up in 2-3 days with your primary care provider to have your INR checked) Disposition: HOME - Home Medications Comprehensive Discharge Medication List: Ambulatory Orders Aspirin [ASA -] 81 mg PO DAILY 11/26/15 Phenytoin Sodium Extended 100 mg PO TID 11/26/15 Carvedilol [Coreg -] 6.25 mg PO BID tablet 01/10/16 Furosemide [Lasix -] 80 mg PO DAILY 05/02/16 Warfarin Na [Coumadin] 4 mg PO DAILY@1800 05/02/16 Warfarin Na [Coumadin] 6 mg PO ONCE 05/02/16 This patient is new to me today: No Emergency Visit: Yes ED Registration Date: 05/04/16 Care time: The patient presented to the Emergency Department on the above date and was hospitalized for further evaluation of their emergent condition. Critical Care patient: No - Discharge Referral Referred to [facility] Med P.C[facility] No
== END 2016-05-06 18:40 | disposition home or self-care (01) | DRG 463 ==
LOC: JER 22:47 → JERBED 05-03 14:37 → J4W 05-03 18:00 → OBSVTOIN 05-04 18:32
PROVIDERS: ADMIT Internal Medicine; ATTEND Registered Nurse
DX: N39.0 Urinary tract infection, site not specified (principal); I11.0 Hypertensive heart disease with heart failure; I50.32 Chronic diastolic (congestive) heart failure; G40.909 Epilepsy, unspecified, not intractable, without status epilepticus; Z95.2 Presence of prosthetic heart valve; Z86.73 Personal history of transient ischemic attack (TIA), and cerebral infarction without residual deficits; I25.10 Atherosclerotic heart disease of native coronary artery without angina pectoris; Z91.81 History of falling; B96.20 Unspecified Escherichia coli [E. coli] as the cause of diseases classified elsewhere; R11.2 Nausea with vomiting, unspecified
CPT/HCPCS: 36415; 71260-TC; 74177-TC; 76705-TC; 80048; 80053; 81003; 81015; 82550; 82553; 83690; 83735; 83880; 84484; 85025; 85610; 87086; 87186; 93005; 93010; 93306-TC; 99283-25; G0378